=== PATIENT | female | born 1945 | race Caucasian/White ===

== ENCOUNTER 2016-11-07 03:10 | Observation (INO) | payer MEDICARE, BC ==
[2016-11-07 03:53] LABS: HEMATOCRIT 37 % (35-47); MEAN CORPUSCULAR HGB CONC 33.5 gm/dl (32.0-36.0); MEAN CORPUSCULAR VOLUME 84 fL (81-99)
[2016-11-07 04:13] LABS: ANISOCYTOSIS SLIGHT; BASOPHILS % (MANUAL) 0 % (0-3); EOSINOPHILS % (MANUAL) 0 % (0-9); LYMPHOCYTES % (MANUAL) 10 % (10-50)
[2016-11-07 04:16] LABS: ALBUMIN 3.5 gm/dl (3.4-5.0); ALT 23 IU/L (14-63); CALCIUM 9.2 mg/dl (8.5-10.1); GLOM FILT RATE 33 mL/min (>60); SODIUM 142 mMol/L (136-145); THYROID STIMULATING HORMONE 3.076 uU/ml (0.358-3.740)
[2016-11-07] MEDS ORDERED: ACETAMINOPHEN PO PRN (05:13)
[2016-11-07] MEDS ORDERED: WARFARIN SODIUM 2.5 MG TAB PO SCH ×3 (05:15→18:00)
[2016-11-07] MEDS: TRAMADOL HYDROCHLORIDE 50 MG TAB PO PRN ×3 (06:24→20:57)
[2016-11-07 07:37] LABS: APPEARANCE,URINE Slightly Cloudy; BILIRUBIN,URINE NEGATIVE (NEGATIVE); COLOR,URINE Dark yellow; GLUCOSE, URINE (UA) TRACE (NEGATIVE); KETONES,URINE TRACE (NEGATIVE); LEUKOCYTE ESTERASE ,URINE 1+ (NEGATIVE); NITRATE,URINE POSITIVE (NEGATIVE); OCCULT BLOOD,URINE TRACE INTACT (NEG-TRACE); PH,URINE 5.5; UROBILINOGEN,URINE 0.2 (0.2-1.0 EU)
[2016-11-07 07:48] LABS: RBC,URINE 0-2 (0-3AV/HPF); WBC,URINE 15-20 (0-5AV/HPF)
[2016-11-07] MEDS ORDERED: RANITIDINE HCL 150 MG TAB PO SCH (09:00)
[2016-11-07] MEDS: LISINOPRIL 20 MG TAB PO SCH (09:01)
[2016-11-07] MEDS: CHOLECALCIFEROL 1,000 IU TAB PO SCH (09:01)
[2016-11-07] MEDS: GEMFIBROZIL 600 MG TAB PO SCH ×2 (09:01→21:03)
[2016-11-07] MEDS ORDERED: OXYCODONE HYDROCHLORIDE 5 MG TAB PO PRN (09:04)
[2016-11-07] MEDS: LEVOFLOXACIN 500 MG TAB PO SCH (09:06)
[2016-11-07] MEDS: ACETAMINOPHEN 500 MG 500 MG TAB PO PRN ×2 (09:06→17:56)
[2016-11-07] MEDS: ALLOPURINOL 100 MG TAB PO SCH (09:06)
[2016-11-07] MEDS: NOVOLOG FLEXPEN SC SCH ×3 (09:09→17:39)
[2016-11-07] MEDS: VENLAFAXINE HYDROCHLORIDE 75 MG CER PO SCH (10:59)
[2016-11-07] MEDS: SODIUM CHLORIDE 0.9% FLUSH 10 ML SOL IV SCH ×2 (14:45→21:41)
[2016-11-07] MEDS ORDERED: INSULIN GLARGINE, RECOMBINAN 100 U/ML SOL SC SCH (21:00)
[2016-11-07 22:27] VITALS: RESP 20
[2016-11-08] MEDS: ACETAMINOPHEN 500 MG 500 MG TAB PO PRN ×2 (02:43→10:52)
[2016-11-08] MEDS: SODIUM CHLORIDE 0.9% FLUSH 10 ML SOL IV SCH ×2 (07:37→14:32)
[2016-11-08 08:19] LABS: BASOPHILS % (AUTO) 1 % (0-3); EOSINOPHILS % (AUTO) 1 % (0-9); HEMATOCRIT 30 % (35-47); MEAN CORPUSCULAR HGB CONC 33.2 gm/dl (32.0-36.0); MEAN CORPUSCULAR VOLUME 84 fL (81-99); MONOCYTES % (AUTO) 4.8 % (0-12)
[2016-11-08 08:27] LABS: CALCIUM 8.8 mg/dl (8.5-10.1)
[2016-11-08] MEDS ORDERED: NAPROXEN 500 MG TAB PO PRN (08:33)
[2016-11-08] MEDS ORDERED: FAMOTIDINE 20 MG TAB PO SCH (09:00)
[2016-11-08] MEDS: LEVOFLOXACIN 500 MG TAB PO SCH (09:29)
[2016-11-08] MEDS: ALLOPURINOL 100 MG TAB PO SCH (09:29)
[2016-11-08] MEDS: GEMFIBROZIL 600 MG TAB PO SCH (09:29)
[2016-11-08] MEDS: LISINOPRIL 20 MG TAB PO SCH (09:30)
[2016-11-08] MEDS: CHOLECALCIFEROL 1,000 IU TAB PO SCH (09:30)
[2016-11-08] MEDS: VENLAFAXINE HYDROCHLORIDE 75 MG CER PO SCH (09:31)
[2016-11-08] MEDS: NOVOLOG FLEXPEN SC SCH ×2 (09:31→12:24)
[2016-11-08 15:48] VITALS: PULSE 89; TEMP 97.5
[2016-11-08 15:49] VITALS: O2SAT 93
[2016-11-08 16:00] VITALS: BP 163/80
[2016-11-08] MEDS ORDERED: WARFARIN SODIUM 2.5 MG TAB PO SCH (18:00)
[2016-11-10] MEDS ORDERED: WARFARIN SODIUM 2.5 MG TAB PO SCH (08:34)
== END 2016-11-08 16:15 | disposition short-term general hospital (02) | DRG 394 ==
LOC: ED 03:10 → ACUTE CARE 05:10
PROVIDERS: ADMIT Family Medicine; ATTEND Family Medicine
DX: K66.1 Hemoperitoneum (principal); N39.0 Urinary tract infection, site not specified; E11.319 Type 2 diabetes mellitus with unspecified diabetic retinopathy without macular edema; N18.3 Chronic kidney disease, stage 3 (moderate); S39.012A Strain of muscle, fascia and tendon of lower back, initial encounter; W18.30XA Fall on same level, unspecified, initial encounter; R42 Dizziness and giddiness; R40.4 Transient alteration of awareness; T40.4X5A Adverse effect of other synthetic narcotics, initial encounter; R07.9 Chest pain, unspecified; I12.9 Hypertensive chronic kidney disease with stage 1 through stage 4 chronic kidney disease, or unspecified chronic kidney disease
CPT/HCPCS: 36415; 51798; 71010; 72120; 74177; 80048; 80053; 81001; 82962; 84443; 84484; 85007; 85018; 85025; 85027; 85610; 87077; 87088; 87186; 93005; 93012; 99220; 99285; J1817; Q9967; J1815

== ENCOUNTER 2017-04-02 23:15 | Emergency (ER) | payer MEDICARE, BC ==
[2017-04-02 23:56] LABS: BASOPHILS % (AUTO) 1 % (0-3); EOSINOPHILS % (AUTO) 6 % (0-9); HEMATOCRIT 41 % (35-47); MEAN CORPUSCULAR HGB CONC 32.9 gm/dl (32.0-36.0); MONOCYTES % (AUTO) 5.8 % (0-12); NEUTROPHILS % (AUTO) 52.3 % (37-80)
[2017-04-02 23:59] LABS: MEAN CORPUSCULAR VOLUME 80 fL (81-99)
[2017-04-03 00:07] LABS: APPEARANCE,URINE Clear; BILIRUBIN,URINE NEGATIVE (NEGATIVE); COLOR,URINE Yellow; GLUCOSE, URINE (UA) TRACE (NEGATIVE); KETONES,URINE NEGATIVE (NEGATIVE); LEUKOCYTE ESTERASE ,URINE NEGATIVE (NEGATIVE); NITRATE,URINE NEGATIVE (NEGATIVE); OCCULT BLOOD,URINE TRACE INTACT (NEG-TRACE); UROBILINOGEN,URINE 0.2 (0.2-1.0 EU)
[2017-04-03 00:08] LABS: ALBUMIN 3.6 gm/dl (3.4-5.0); CALCIUM 9.3 mg/dl (8.5-10.1); POTASSIUM 3.3 mMol/L (3.5-5.1)
[2017-04-03 00:19] LABS: RBC,URINE 0-1 (0-3AV/HPF); WBC,URINE 0-1 (0-5AV/HPF)
[2017-04-03 01:41] VITALS: BP 209/93; PULSE 89; RESP 22; TEMP 97.8; O2SAT 100
== END 2017-04-03 00:40 | disposition short-term general hospital (02) | DRG 536 ==
LOC: ED 23:15
DX: S72.142A Displaced intertrochanteric fracture of left femur, initial encounter for closed fracture (principal); W01.0XXA Fall on same level from slipping, tripping and stumbling without subsequent striking against object, initial encounter
CPT/HCPCS: 73502; 80053; 81001; 85025; 99284; 99285

== ENCOUNTER 2017-09-05 14:19 | Emergency (ER) | payer MEDICARE, BC ==
[2017-09-05] MEDS ORDERED: MORPHINE SULFATE 10 MG/ML SOL IV ONE (14:36)
[2017-09-05] MEDS ORDERED: MORPHINE SULFATE 10 MG/ML SOL ONE (14:48)
[2017-09-05] MEDS: SODIUM CHLORIDE 0.9% FLUSH 10 ML SOL IV PRN ×4 (15:10→16:06)
[2017-09-05 15:12] LABS: BASOPHILS % (AUTO) 2 % (0-3); EOSINOPHILS % (AUTO) 3 % (0-9); HEMATOCRIT 40 % (35-47); MEAN CORPUSCULAR HGB CONC 34.1 gm/dl (32.0-36.0); MONOCYTES % (AUTO) 7.6 % (0-12); NEUTROPHILS % (AUTO) 55.2 % (37-80)
[2017-09-05 15:13] VITALS: TEMP 97
[2017-09-05 15:15] LABS: MEAN CORPUSCULAR VOLUME 81 fL (81-99)
[2017-09-05] MEDS ORDERED: ONDANSETRON HCL 4 MG/2 ML SOL ONE (15:17)
[2017-09-05] MEDS ORDERED: ONDANSETRON HCL 4 MG/2 ML SOL IV ONE (15:19)
[2017-09-05 15:30] LABS: ALBUMIN 3.6 gm/dl (3.4-5.0); ALT 22 IU/L (14-63); CALCIUM 9.6 mg/dl (8.5-10.1); GLOM FILT RATE 32 mL/min (>60); POTASSIUM 4.4 mMol/L (3.5-5.1); SODIUM 142 mMol/L (136-145)
[2017-09-05] MEDS ORDERED: LABETALOL HYDROCHLORIDE 5 MG/ML SOL IV ONE ×2 (15:47→15:48)
[2017-09-05] MEDS ORDERED: KETOROLAC TROMETHAMINE 30 MG/ML SOL IV ONE (15:52)
[2017-09-05] MEDS ORDERED: ASPIRIN 81 MG CHEWABLE CTB PO ONE (15:55)
[2017-09-05] MEDS ORDERED: ASPIRIN 81 MG CHEWABLE CTB ONE (16:04)
[2017-09-05] MEDS ORDERED: KETOROLAC TROMETHAMINE 30 MG/ML SOL ONE (16:04)
[2017-09-05 16:52] VITALS: RESP 16
[2017-09-05 16:54] VITALS: BP 158/85; PULSE 78; O2SAT 90
== END 2017-09-05 16:40 | disposition home or self-care (01) | DRG 69 ==
LOC: ED 14:19
DX: G45.9 Transient cerebral ischemic attack, unspecified (principal); R40.2252 Coma scale, best verbal response, oriented, at arrival to emergency department; R40.2362 Coma scale, best motor response, obeys commands, at arrival to emergency department; R47.81 Slurred speech; R51 Headache
CPT/HCPCS: 36415; 70450; 71010; 80053; 84484; 85025; 85610; 85730; 93005; 99285; J1885; J2270; J2405

== ENCOUNTER 2018-08-02 02:50 | Emergency (ER) | payer MEDICARE, BC ==
[2018-08-02 03:40] VITALS: TEMP 99.6
[2018-08-02 04:53] LABS: BASOPHILS % (AUTO) 1 % (0-3); EOSINOPHILS % (AUTO) 3 % (0-9); HEMATOCRIT 41 % (35-47); HEMOGLOBIN 13.1 gm/dl (12.0-15.5); MEAN CORPUSCULAR HEMOGLOBIN 27.7 pg (27.0-32.0); MEAN CORPUSCULAR HGB CONC 31.6 gm/dl (32.0-36.0); MEAN CORPUSCULAR VOLUME 88 fL (81-99); MONOCYTES % (AUTO) 6.4 % (0-12); NEUTROPHILS % (AUTO) 78.4 % (37-80)
[2018-08-02 05:04] LABS: CALCIUM 8.8 mg/dl (8.5-10.1); CARBON DIOXIDE 21.1 mEq/L (21-32); CREATININE 1.23 mg/dl (0.60-1.00); POTASSIUM 4.1 mMol/L (3.5-5.1)
[2018-08-02 05:05] LABS: APPEARANCE,URINE Clear; BILIRUBIN,URINE NEGATIVE (NEGATIVE); COLOR,URINE Yellow; GLUCOSE, URINE (UA) 2+ (NEGATIVE); KETONES,URINE NEGATIVE (NEGATIVE); LEUKOCYTE ESTERASE ,URINE NEGATIVE (NEGATIVE); NITRATE,URINE NEGATIVE (NEGATIVE); OCCULT BLOOD,URINE TRACE LYSED (NEG-TRACE); UROBILINOGEN,URINE 0.2 (0.2-1.0 EU)
[2018-08-02 05:10] LABS: INR 3.41 (0.86-1.12)
[2018-08-02] MEDS ORDERED: TDAP VACCINE 0.5 ML SUS IM ONE ×2 (05:20→05:50)
[2018-08-02 05:24] LABS: BACTERIA TRACE (< 1+); CRYSTALS NEGATIVE (0-3 AVE/HPF); EPITHELIAL CELLS 0-1 (SQUAMOUS); RBC,URINE 0-1 (0-3AV/HPF); WBC,URINE NEGATIVE (0-5AV/HPF)
[2018-08-02 06:39] VITALS: RESP 28
[2018-08-02 06:40] VITALS: BP 155/77; PULSE 93; O2SAT 92
== END 2018-08-02 06:30 | disposition home or self-care (01) | DRG 149 ==
LOC: ED 02:50
DX: R42 Dizziness and giddiness (principal); Z79.01 Long term (current) use of anticoagulants
CPT/HCPCS: 36415; 73070; 80048; 81001; 85025; 85610; 90471; 90715; 93005; 99283; 99285